=== PATIENT | male | born 1995 | race Caucasian/White ===

== ENCOUNTER 2019-10-04 17:02 | Emergency (ER) | payer OTHER ==
[2019-10-04] MEDS ORDERED: Ketorolac 60 MG/2 ML SDV IM ONE (17:18)
--- NOTE | 2019-10-04 17:21 | EDM.PDOC ---
ED HPI GENERAL MEDICAL PROBLEM - General Chief Complaint: General Stated Complaint: PT FELL Time Seen by Provider: 10/04/19 17:03 - History of Present Illness INITIAL COMMENTS - FREE TEXT/NARRATIVE: HISTORY AND PHYSICAL: History of present illness: The patient is a healthy 24-year-old male who was on a ladder approximately 5 feet when the ladder darted falling backwards and he fell onto the ground landing on his buttock. He did not his head pass out or black out and has no head neck or upper and mid back pain but complains of only pain at his tailbone and his left posterior hip. Prior to these events he was in his usual state of good health without any systemic issues. He had no nausea or vomiting no abdominal pain no chest pain or shortness of breath and no upper extremity complaints or lower extremity complaints. He has no numbness weakness or tingling in his extremities. He did not give any medications prior to coming here Review of systems: As per history of present illness and below otherwise all systems reviewed and negative. Past medical history: As per history of present illness and as reviewed below otherwise noncontributory. Surgical history: As per history of present illness and as reviewed below otherwise noncontributory. Social history: No reported history of drug or alcohol abuse. Family history: As per history of present illness and as reviewed below otherwise noncontributory. Physical exam: General: Well-developed well-nourished man who is nontoxic and moves easily in the ED without distress. Vital signs are noted by me HEENT: Atraumatic, normocephalic, pupils reactive, negative for conjunctival pallor or scleral icterus, mucous membranes moist, throat clear, neck supple, nontender, trachea midline. Lungs: Clear to auscultation, breath sounds equal bilaterally, chest nontender. Heart: S1S2, regular rate and rhythm no overt murmurs Abdomen: Soft, nondistended, nontender. NABS Pelvis: Stable nontender. There is no lateral hip tenderness but there is some discomfort with flexion at the left hip appears to be more muscular and there is no inguinal discomfort or pain or suprapubic tenderness Genitourinary: Deferred. Rectal: Deferred. Extremities: Atraumatic full range of motion of all extremities and no defects or deformities, negative for cords or calf pain. Neurovascular unremarkable. Neuro: Awake, alert, oriented. Cranial nerves II through XII unremarkable. Cerebellum unremarkable. Motor and sensory unremarkable throughout. Exam nonfocal. Back: There are no midline step-offs or defects of the thoracic or lumbar spine nor of the sacrum or coccyx but there is diffuse tenderness at the sacrum and coccyx without erythema ecchymosis or soft tissue swelling Diagnostics: X-ray of the sacrum and coccyx, left hip with pelvis x-ray Therapeutics: Toradol IM The patient has been advised of x-ray results and symptomatic care for home Impression: Fall, sacrum and coccyx contusion Definitive disposition and diagnosis as appropriate pending reevaluation and review of above. Sacrum Pain Score (Numeric/FACES): 6 - Related Data Allergies Allergy/AdvReac Type Severity Reaction Status Date / Time No Known Allergies Allergy Verified 10/04/19 17:05 Home Meds: Home Meds . [No Known Home Meds] 10/04/19 [History] Past Medical History HEENT History: Reports: None Cardiovascular History: Reports: None Respiratory History: Reports: None Gastrointestinal History: Reports: None Genitourinary History: Reports: None Musculoskeletal History: Reports: None Neurological History: Reports: None Psychiatric History: Reports: None Endocrine/Metabolic History: Reports: None Hematologic History: Reports: None Immunologic History: Reports: None Oncologic (Cancer) History: Reports: None Dermatologic History: Reports: None - Past Surgical History Head Surgeries/Procedures: Reports: None HEENT Surgical History: Reports: Tonsillectomy Cardiovascular Surgical History: Reports: None Respiratory Surgical History: Reports: None GI Surgical History: Reports: None Male Surgical History: Reports: None Endocrine Surgical History: Reports: None Neurological Surgical History: Reports: None Musculoskeletal Surgical History: Reports: None Oncologic Surgical History: Reports: None Dermatological Surgical History: Reports: None Social & Family History - Family History Family Medical History: Noncontributory - Tobacco Use Smoking Status *Q: Current Every Day Smoker Years of Tobacco use: 4 Packs/Tins Daily: 1 - Caffeine Use Caffeine Use: Reports: Coffee - Recreational Drug Use Recreational Drug Use: No ED ROS GENERAL - Review of Systems Review Of Systems: Comprehensive ROS is negative, except as noted in HPI. ED EXAM, GENERAL - Physical Exam Exam: See Below (see dictation) Course - Vital Signs Last Recorded V/S: Last Vital Signs Temp 37.0 C 10/04/19 17:05 Pulse 79 10/04/19 17:05 Resp 16 10/04/19 17:05 BP 129/75 10/04/19 17:05 Pulse Ox 96 10/04/19 17:05 - Orders/Labs/Meds Meds: Medications Discontinued Medications Generic Name Dose Route Start Last Admin Trade Name Frewarner PRN Reason Stop Dose Admin Ketorolac Tromethamine 60 mg 10/04/19 17:18 10/04/19 17:27 Toradol IM 10/04/19 17:19 60 mg ONETIME ONE Administration Departure - Departure Time of Disposition: 18:32 Disposition: Home, Self-Care 01 Condition: Good Clinical Impression: Fall from ladder Qualifiers: Encounter type: initial encounter Qualified Code(s): W11.XXXA - Fall on and from ladder, initial encounter Coccyx contusion Qualifiers: Encounter type: initial encounter Qualified Code(s): S30.0XXA - Contusion of lower back and pelvis, initial encounter - Discharge Information Forms: ED Department Discharge Additional Instructions: The following information is given to patients seen in the emergency department who are being discharged to home. This information is to outline your options for follow-up care. We provide all patients seen in our emergency department with a follow-up referral. The need for follow-up, as well as the timing and circumstances, are variable depending upon the specifics of your emergency department visit. If you don't have a primary care physician on staff, we will provide you with a referral. We always advise you to contact your personal physician following an emergency department visit to inform them of the circumstance of the visit and for follow-up with them and/or the need for any referrals to a consulting specialist. The emergency department will also refer you to a specialist when appropriate. This referral assures that you have the opportunity for followup care with a specialist. All of these measure are taken in an effort to provide you with optimal care, which includes your followup. Under all circumstances we always encourage you to contact your private physician who remains a resource for coordinating your care. When calling for followup care, please make the office aware that this follow-up is from your recent emergency room visit. If for any reason you are refused follow-up, please contact the [facility] emergency department at and ask to speak to the emergency department charge nurse. [facility] Primary care- Internal Medicine and Family [place] [id number] [place], [place] [id number] To areas of discomfort and rest as much as possible. Use [id number] Tylenol and/or ibuprofen for pain management and call and schedule a follow-up appointment with your provider or one of ours for further care of this injury. Return to ER as needed and as discussed
--- NOTE | 2019-10-04 18:10 | CR ---
INDICATION: Fall TECHNIQUE: Three-view sacrum and coccyx COMPARISON: None FINDINGS: Bones: Alignment is normal. No fractures or bone lesions. Joint spaces: Unremarkable. Soft tissues: Unremarkable. IMPRESSION: Negative. Dictated by Jefferson Arteaga MD @ 10/04/2019 6:07:33 PM Dictated by: Jefferson Arteaga MD @ 10/04/2019 18:07:44 (Electronically Signed)
--- NOTE | 2019-10-04 18:12 | CR ---
INDICATION: Fall TECHNIQUE: AP pelvis and two views left hip COMPARISON: None FINDINGS: Bones: Alignment is normal. No fractures or bone lesions. Joint spaces: Unremarkable. Soft tissues: Unremarkable. IMPRESSION: Negative. Dictated by Jefferson Arteaga MD @ 10/04/2019 6:10:57 PM Dictated by: Jefferson Arteaga MD @ 10/04/2019 18:11:04 (Electronically Signed)
== END 2019-10-04 18:50 | disposition home or self-care (01) ==
LOC: MW.ED 17:02
DX: S30.0XXA Contusion of lower back and pelvis, initial encounter (principal); F17.210 Nicotine dependence, cigarettes, uncomplicated; W11.XXXA Fall on and from ladder, initial encounter
CPT/HCPCS: 72220; 73502; 96372; 99283; J1885

== ENCOUNTER 2020-07-14 15:42 | Emergency (ER) | payer OTHER ==
--- NOTE | 2020-07-14 15:54 | EDM.PDOC ---
ED HPI GENERAL MEDICAL PROBLEM - General Chief Complaint: Lower Extremity Injury/Pain Stated Complaint: FOOT INJURY Time Seen by Provider: 07/14/20 15:43 Source of Information: Reports: Patient History Limitations: Reports: No Limitations - History of Present Illness INITIAL COMMENTS - FREE TEXT/NARRATIVE: HISTORY AND PHYSICAL: History of present illness: Patient is a 25-year-old male who presents to the emergency room with complaints of right lateral ankle pain. While at work he was doing some drills when a another participant stepped on his ankle. He is complaining of lateral ankle pain and swelling. He denies any numbness, tingling or saddle paresthesia. Denies any other extremity involvement. Offers no systemic complaints. Review of systems: As per history of present illness and below otherwise all systems reviewed and negative. Past medical history: As per history of present illness and as reviewed below otherwise noncontributory. Surgical history: As per history of present illness and as reviewed below otherwise noncontributory. Social history: See social history for further information Family history: As per history of present illness and as reviewed below otherwise noncontributory. Physical exam: General: Well developed and well nourished 25-year-old male. Alert and orientated x 3. Nontoxic in appearance and in no acute distress. Vital signs are stable and have been reviewed by me. Nursing notes were reviewed. HEENT: Atraumatic, normocephalic, pupils equal and reactive bilaterally, negative for conjunctival pallor or scleral icterus, mucous membranes moist, trachea midline. No drooling or trismus noted. No meningeal signs. No hot potato voice noted. Lungs: Clear to auscultation, breath sounds equal bilaterally. Normal work of breathing, no accessory muscles used. Heart: S1S2, regular rate and rhythm without overt murmur Abdomen: Soft, nondistended, nontender. Skin: Intact, warm, dry. No lesions or rashes noted. Hematologic: No petechiae or purpra. Mucosa appropriate color and normal nail bed color and refill. Extremities: Pain with palpation of the right lateral ankle/malleolus. He moves all extremities per self without difficulty or deficits, negative for cords or calf pain, strong pedal and pretibial pulse. Neurovascular unremarkable. Neuro: Awake, alert, oriented. Cranial nerves II through XII unremarkable. Cerebellum unremarkable. Motor and sensory unremarkable throughout. Exam nonfocal. Notes: X-ray shows a posterior process of the talus shows a lucent line. May be an acute fracture within the posterior process although partially fused accessory ossification is a possibility. Patient will be placed in a CAM walker boot and given crutches. We discussed signs and symptoms that would prompt them to return to the Emergency Department. Medication, follow up and supportive care measures were reviewed and discussed. Voices understanding and is agreeable to plan of care. Denies any further questions or concerns at this time. Diagnostics: X-ray Therapeutics: CAM walker boot and crutches, norco (2 tabs for home) Prescription: Diclofenac Impression: Ankle sprain Plan: 1. Rest, ice, elevate the affected extremity. Please wear the splint and use crutches as directed. 2. Tylenol and/or Ibuprofen as needed for pain management. 3. Follow up with the Orthopedic provider as we discussed, call Wednesday to set up a follow up appointment. Return to the ED as needed and as discussed. Definitive disposition and diagnosis as appropriate pending reevaluation and review of above. right ankle Pain Score (Numeric/FACES): 5 - Related Data Allergies Allergy/AdvReac Type Severity Reaction Status Date / Time No Known Allergies Allergy Verified 07/14/20 15:43 Home Meds: Home Meds . [No Known Home Meds] 10/04/19 [History] Past Medical History HEENT History: Reports: None Cardiovascular History: Reports: None Respiratory History: Reports: None Gastrointestinal History: Reports: None Genitourinary History: Reports: None Musculoskeletal History: Reports: None Neurological History: Reports: None Psychiatric History: Reports: None Endocrine/Metabolic History: Reports: None Hematologic History: Reports: None Immunologic History: Reports: None Oncologic (Cancer) History: Reports: None Dermatologic History: Reports: None - Infectious Disease History Infectious Disease History: Reports: None - Past Surgical History Head Surgeries/Procedures: Reports: None HEENT Surgical History: Reports: Tonsillectomy Cardiovascular Surgical History: Reports: None Respiratory Surgical History: Reports: None GI Surgical History: Reports: None Male Surgical History: Reports: None Endocrine Surgical History: Reports: None Neurological Surgical History: Reports: None Musculoskeletal Surgical History: Reports: None Oncologic Surgical History: Reports: None Dermatological Surgical History: Reports: None Social & Family History - Family History Family Medical History: Noncontributory - Tobacco Use Smoking Status *Q: Current Every Day Smoker Years of Tobacco use: 6 Packs/Tins Daily: 3 - Caffeine Use Caffeine Use: Reports: None - Recreational Drug Use Recreational Drug Use: No Review of Systems - Review of Systems Review Of Systems: Comprehensive ROS is negative, except as noted in HPI. ED EXAM, GENERAL - Physical Exam Exam: See Below (See dictation) Course - Vital Signs Last Recorded V/S: Last Vital Signs Temp 97.3 F 07/14/20 15:43 Pulse 107 H 07/14/20 15:43 Resp 17 07/14/20 15:43 BP 131/96 H 07/14/20 15:43 Pulse Ox 95 07/14/20 15:43 - Orders/Labs/Meds Orders: Active Orders 24 hr Category Date Time Status DME for Discharge [COMM] Stat Oth 07/14/20 16:29 Ordered Departure - Departure Time of Disposition: 16:41 Disposition: Home, Self-Care 01 Clinical Impression: Talus fracture Qualifiers: Encounter type: initial encounter Fracture type: closed Talus location: posterior process Fracture alignment: nondisplaced Laterality: right Qualified Code(s): S92.134A - Nondisplaced fracture of posterior process of right talus, initial encounter for closed fracture - Discharge Information Forms: ED Department Discharge Additional Instructions: The following information is given to patients seen in the emergency department who are being discharged to home. This information is to outline your options for follow-up care. We provide all patients seen in our emergency department with a follow-up referral. The need for follow-up, as well as the timing and circumstances, are variable depending upon the specifics of your emergency department visit. If you don't have a primary care physician on staff, we will provide you with a referral. We always advise you to contact your personal physician following an emergency department visit to inform them of the circumstance of the visit and for follow-up with them and/or the need for any referrals to a consulting specialist. The emergency department will also refer you to a specialist when appropriate. This referral assures that you have the opportunity for follow-up care with a specialist. All of these measure are taken in an effort to provide you with optimal care, which includes your follow-up. Under all circumstances we always encourage you to contact your private physician who remains a resource for coordinating your care. When calling for follow-up care, please make the office aware that this follow-up is from your recent emergency room visit. If for any reason you are refused follow-up, please contact the [facility] Emergency Department at and asked to speak to the emergency department charge nurse. [facility] Primary Care [address] [place] [address] [facility] [address] [place] [address] Thank you for choosing the [facility] emergency department in [place] for your medical needs today. It was a pleasure caring for you. Today you were seen in the emergency department for ankle injury/pain. 1. Rest, ice, elevate the affected extremity. Please wear the splint and use crutches as directed. 2. Tylenol and/or Ibuprofen as needed for pain management. 3. Follow up with the Orthopedic provider as we discussed, call Wednesday to set up a follow up appointment. Return to the ED as needed and as discussed. Sepsis Event Note (ED) - Evaluation Sepsis Screening Result: No Definite Risk - Focused Exam Vital Signs: Vital Signs Temp Pulse Resp BP Pulse Ox 07/14/20 15:43 97.3 F 107 H 17 131/96 H 95 - My Orders Last 24 Hours: My Active Orders 07/14/20 16:29 DME for Discharge [COMM] Stat - Assessment/Plan Last 24 Hours: My Active Orders 07/14/20 16:29 DME for Discharge [COMM] Stat
--- NOTE | 2020-07-14 16:25 | CR ---
Right ankle: 3 views right ankle were obtained. Posterior process of the talus shows a lucent line. This may represent an acute fracture within the posterior process although partially fused accessory ossification center is also a possibility. Anterior beaking is noted about the distal tibia which is normal variant but can result in impingement symptoms on dorsiflexion. No additional abnormality is appreciated. Impression: 1. Findings as described above. Diagnostic code #3 This report was dictated in MDT
[2020-07-14] MEDS ORDERED: Acetaminophen/HYDROcodone 325-5 MG Tab PO ONE (16:41)
== END 2020-07-14 16:55 | disposition home or self-care (01) ==
LOC: MW.ED 15:42
DX: S92.134A Nondisplaced fracture of posterior process of right talus, initial encounter for closed fracture (principal); S93.401A Sprain of unspecified ligament of right ankle, initial encounter; F17.210 Nicotine dependence, cigarettes, uncomplicated; W51.XXXA Accidental striking against or bumped into by another person, initial encounter; Y92.89 Other specified places as the place of occurrence of the external cause; Y99.0 Civilian activity done for income or pay
CPT/HCPCS: 29515; 73610-26-RT; 73610-RT; 99283; 99283-25

== ENCOUNTER 2021-03-17 22:34 | Emergency (ER) | payer OTHER ==
[2021-03-17] MEDS ORDERED: Aspirin 81 MG Tab.Chew PO ONE (23:06)
--- NOTE | 2021-03-17 23:06 | CR ---
Indication: Chest pain, fever Technique: Chest 1 view Comparison: None Findings/Impression: Cardiovascular and mediastinum: Heart size and vasculature are normal in caliber and appearance. Mediastinum is within normal limits. Lungs and pleural space: Lungs are clear. No sign of infiltrate or mass. No sign of pleural effusion. No pneumothorax. Bones and soft tissues: No significant findings. Dictated by Rossana Yoo MD @ 03/17/2021 11:04:[address] Rossana Yoo @ Mar 17 2021 11:04PM
[2021-03-17 23:26] LABS: BLOOD UREA NITROGEN,BUN 17 mg/dL (7.0-18.0); CARBON DIOXIDE,CO2 28.3 mmol/L (21.0-32.0); CHLORIDE,CL 104 mmol/L (98-107); GLUCOSE RANDOM 95 mg/dL (74-106); POTASSIUM,K 3.9 mmol/L (3.5-5.1); SODIUM,NA 142 mmol/L (136-148)
[2021-03-17] MEDS ORDERED: Ketorolac 15 MG/ML SDV IM ONE (23:44)
[2021-03-18] MEDS ORDERED: Ketorolac 15 MG/ML SDV IVPUSH STA (00:03)
--- NOTE | 2021-03-18 00:21 | EDM.PDOC ---
ED HPI GENERAL MEDICAL PROBLEM - General Chief Complaint: Chest Pain Stated Complaint: CHEST PAIN Time Seen by Provider: 03/17/21 22:37 - History of Present Illness INITIAL COMMENTS - FREE TEXT/NARRATIVE: CHIEF COMPLAINT(S): Chest pain HISTORY OF PRESENT ILLNESS: This is a 25-year-old man without any significant past medical history who comes to the emergency department with a chief complaint of chest pain. The patient states that for approximately 24 to 48 hours now he has been experiencing sharp chest pain located in the left upper chest just lateral to his left sternum which radiates to his back. He states that it is also sharp in his back. He states it is intermittent not associated with any position. He denies any diaphoresis, nausea or vomiting. He states that the pain is rated 4 out of 10 and now it is 3 out of 10. 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 However he has been on a quieter shift because of a ankle injury. He states that he does at times feel like he just got done running. He denies any exertional chest pain, lower extremity edema, orthopnea. He denies any shortness of breath. He denies any recent travel recent surgery or prior history of DVT or PE. He denies any numbness, tingling, or weakness. He states that he does have a family history of CAD in his father side. He states that his father at age 60 from a heart attack. He also states that his grandfather on his father side in his 40s to 50s from cardiac disease. He denies any other family history such as connective tissue diseases. He denies any family history of aneurysm. He denies any aggravating or relieving factors. The patient states that he does smoke tobacco daily. He denies any history of diabetes mellitus, hypertension, prior history of CAD or CHF. REVIEW OF SYSTEMS: Constitutional: Denies fever, chills. Eyes: Denies eye pain Ears, Nose, Mouth, & Throat: Denies earache Cardiovascular: Positive for chest pain, pleuritic chest pain Respiratory: Denies shortness of breath Gastrointestinal: Denies Nausea, vomiting, diarrhea, hematochezia. Genitourinary: Denies hematuria Skin:Denies a rash MSK: Positive for left-sided back pain. Neurological: Denies blurred vision Psychiatric: Denies depression PAST MEDICAL HISTORY: As per history of present illness and as reviewed below otherwise noncontributory. SURGICAL HISTORY: As per history of present illness and as reviewed below otherwise noncontributory. SOCIAL HISTORY: As per history of present illness and as reviewed below otherwise noncontributory. FAMILY HISTORY: As per history of present illness and as reviewed below otherwise noncontributory. EXAMINATION OF ORGAN SYSTEMS/BODY AREAS: Constitutional: Blood pressure is 144/97, heart rate 84, respiratory rate 18 with an oxygen saturation of 97% on room air. Temperature 36.3 General: Overall well-appearing young man who is in no acute distress. Psychiatric: Appropriate mood and affect. Eyes: No scleral icterus or conjunctival erythema pupils are equal round reactive to light. Extraocular movements intact. ENMT: Moist mucous membranes. No pharyngeal erythema Cardiovascular: Regular, rate, and rhythm. No gallops, murmurs, or rubs. Bilateral upper extremity pulses symmetric and intact. No peripheral edema. No JVD. Respiratory: Lungs clear to auscultation bilaterally. No wheezes, rales, or rhonchi. Gastrointestinal: Soft, non-tender, non-distended. Normoactive bowel sounds Genitourinary: No suprapubic tenderness Musculoskeletal: Normal range of motion. Skin: No lesions or abrasions. Neurological: Alert, GCS 15 strength and sensation grossly intact in upper and lower extremities. MEDICAL DECISION MAKING AND COURSE IN THE ED WITH INTERPRETATION/REVIEW OF DIAGNOSTIC STUDIES: This is a 25-year-old man without any significant past medical history who comes to the emergency department with approximately 1 to 2 days of sharp left-sided chest pain which is pleuritic in nature who is mildly hypertensive. At this time given the patient's family history will undergo a cardiac work-up. Initial EKG did not reveal any acute signs of ischemia however there were T wave inversions in the inferior and lateral leads. There are no prior EKGs in our system. In addition to ACS work-up we will obtain a D-dimer to evaluate need for further work-up for pulmonary embolism. The patient is low risk for both ACS and PE. This could be secondary to musculoskeletal strain. Heart Score History: Slightly or Non-Suspicious (0) ECG: Non-specific repolarization (1) Age: <45 (0) Risk Factors: 1-2 (2) Initial Troponin: </= normal limit (0) Total Score: 2low risk PERC Rule Age (>/=50): No (0) HR (>/=100): No (0) SaO2 on RA <95%: No (0) Unilateral Leg Swelling: No (0) Hemoptysis: No (0) Surgery/Trauma in last month requiring general anesthesia: No (0) Prior PE or DVT: : No (0) Hormone Use: No (0) PERC negative Wells Criteria Clinical signs/symptoms of DVT: No (0) PE #1 Dx or equally likely: No (0) Heart Rate >100: No (0) Immobilization for 3 days or surgery in last month: No (0) Previously Dx PE or DVT: No (0) Hemoptysis: No (0) Malignancy w/ Tx within 6 months or palliative: No (0) Wells Score: 0 Time: 2235 Twelve-lead EKG interpreted by myself. Normal sinus rhythm at a rate of 90 beats per minute. Normal axis. NJ interval is 144 ms. QRS duration is [address] segments are normal without elevations or depressions. T wave inversions in leads II, 3, aVF, V4 through V6 no Q waves present. Hypertrophy not noted. No prior EKGs in our system. Interpretation: Sinus rhythm with inferior lateral T wave inversions Laboratory: CBC is unremarkable. D-dimer is 0.32. BMP is unremarkable.Magnesium is 2.1. Troponin is negative. The radiological images were viewed by myself along with reading the report from the radiologist. Chest x-ray does not reveal any acute cardiopulmonary process. No mediastinal widening. On reevaluation the patient stated that his pain was similar. Given the negative work-up I did provide the patient with Toradol and we will reevaluate his pain. Was at this time he stated that he did have a smoker's cough and it seems to have been exacerbated after he coughed. At this time I did discuss musculoskeletal strain, costochondritis. I discussed treatment options at home. However we will reevaluate for pain improvement. Time: 2340 Twelve-lead EKG interpreted by myself. Normal sinus rhythm at a rate of 85 beats per minute. Normal axis. NJ interval is 142 ms. QRS duration is [address] segments are normal without elevations or depressions. T wave inversions in leads III, 2, aVF, V4 through V6 no Q waves present. Hypertrophy not noted. No change from EKG dated today. Interpretation: Sinus rhythm with inferior lateral T wave inversions On reevaluation the patient did report pain improvement. I did discuss with him I had like him to follow-up with his primary care physician this week. He is to return for any new or worsening symptoms. He was amenable to discharge at this time and had no further questions DISPOSITION: The patient was discharged home in stable condition. The patient will follow up with primary care physician in 3 to 5 days CONDITION: Fair PROCEDURES: None FINAL IMPRESSION(S)/DIAGNOSES: 1. Acute chest pain Dwight Braun M.D. chest pain Pain Score (Numeric/FACES): 3 - Related Data Allergies Allergy/AdvReac Type Severity Reaction Status Date / Time No Known Allergies Allergy Verified 03/17/21 22:44 Home Meds: Home Meds . 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 Hematologic History: Reports: None Immunologic History: Reports: None Oncologic (Cancer) History: Reports: None Dermatologic History: Reports: None - Infectious Disease History Infectious Disease History: Reports: None - Past Surgical History Head Surgeries/Procedures: Reports: None HEENT Surgical History: Reports: Tonsillectomy Cardiovascular Surgical History: Reports: None Respiratory Surgical History: Reports: None GI Surgical History: Reports: None Male Surgical History: Reports: None Endocrine Surgical History: Reports: None Neurological Surgical History: Reports: None Musculoskeletal Surgical History: Reports: None Oncologic Surgical History: Reports: None Dermatological Surgical History: Reports: None Social & Family History - Family History Family Medical History: No Pertinent Family History - Caffeine Use Caffeine Use: Reports: Coffee, Energy Drinks, Soda, Tea - Recreational Drug Use Recreational Drug Use: No ED ROS GENERAL - Review of Systems Review Of Systems: See Below ED EXAM, GENERAL - Physical Exam Exam: See Below Course - Vital Signs Last Recorded V/S: Last Vital Signs Temp 36.3 C 03/17/21 22:35 Pulse 91 03/18/21 00:27 Resp 16 03/18/21 00:27 BP 140/90 03/18/21 00:27 Pulse Ox 95 03/18/21 00:27 - Orders/Labs/Meds Labs: Laboratory Tests 03/17/21 03/17/21 03/17/21 Range/Units 22:45 22:45 22:45 WBC 4.84 (4.0-11.0) K/uL RBC 5.34 (4.50-5.90) M/uL Hgb 17.7 H (13.0-17.0) g/dL Hct 49.0 (38.0-50.0) % MCV 91.8 (80.0-98.0) fL MCH 33.1 H (27.0-32.0) pg MCHC 36.1 (31.0-37.0) g/dL RDW Std Deviation 41.9 (28.0-62.0) fl RDW Coeff of Shane 13 (11.0-15.0) % Plt Count 242 (150-400) K/uL MPV 9.80 (7.40-12.00) fL Neut % (Auto) 50.3 (48.0-80.0) % Lymph % (Auto) 37.6 (16.0-40.0) % Bell % (Auto) 10.5 (0.0-15.0) % Eos % (Auto) 1.4 (0.0-7.0) % Baso % (Auto) 0.2 (0.0-1.5) % Neut # (Auto) 2.4 (1.4-5.7) K/uL Lymph # (Auto) 1.8 (0.6-2.4) K/uL Bell # (Auto) 0.5 (0.0-0.8) K/uL Eos # (Auto) 0.1 (0.0-0.7) K/uL Baso # (Auto) 0.0 (0.0-0.1) K/uL Nucleated RBC % 0.0 /100WBC Nucleated RBCs # 0 K/uL D-Dimer, Quantitative 0.32 (0.0-0.50) mg/L FEU Sodium 142 (136-148) mmol/L Potassium 3.9 (3.5-5.1) mmol/L Chloride 104 (98-107) mmol/L Carbon Dioxide 28.3 (21.0-32.0) mmol/L BUN 17 (7.0-18.0) mg/dL Creatinine 1.2 (0.8-1.3) mg/dL Est Cr Clr Drug Dosing 94.92 mL/min Estimated GFR (MDRD) > 60.0 ml/min Glucose 95 (74-106) mg/dL Calcium 9.7 (8.5-10.1) mg/dL Magnesium 2.1 (1.8-2.4) mg/dL Troponin I < 0.050 (0.000-0.056) ng/mL Meds: Medications Discontinued Medications Generic Name Dose Route Start Last Admin Trade Name Nathaly PRN Reason Stop Dose Admin Aspirin 324 mg 03/17/21 23:06 03/17/21 23:17 Aspirin 81 Mg Tab.Chew PO 03/17/21 23:07 324 mg ONETIME ONE Administration Ketorolac Tromethamine 15 mg 03/17/21 23:44 03/18/21 00:05 Ketorolac 15 Mg/Ml Sdv IM 03/17/21 23:45 Not Given ONETIME ONE Ketorolac Tromethamine 15 mg 03/18/21 00:03 03/18/21 00:07 Ketorolac 15 Mg/Ml Sdv IVPUSH 03/18/21 00:04 15 mg NOW STA Administration Departure - Departure Time of Disposition: 00:21 Disposition: Home, Self-Care 01 Condition: Fair Clinical Impression: Atypical chest pain, Costochondritis - Discharge Information Instructions: Costochondritis, [id number], Nonspecific Chest Pain, Adult, [id number] Forms: ED Department Discharge Additional Instructions: You were evaluated today on an emergent basis. Your work-up was negative and your chest x-ray was normal. Your EKG or rhythm strip of your heart did reveal feels some abnormalities however this can be normal. There was no evidence of heart attack on your EKG. At this time I do recommend that she use Tylenol and Motrin for pain relief and to follow-up with your primary care physician within 1 to 3 days. If you have any new or worsening symptoms such as passing out, swelling of your legs, worsening chest pain please return to the emergency department. Please use: Tylenol 500-1000mg every 6 hours (DO NOT TAKE MORE THAN 4000mg in 1 day) Ibuprofen 400mg every 6 hours (Take with food as it can cause ulcers, GI upset) Example schedule: 8:00 AM (Tylenol 500-1000mg) 11:00 AM (Ibuprofen 400mg) 2:00 PM (Tylenol 500-1000mg) 5:00 PM (Ibuprofen 400mg) In addition to Tylenol and Motrin you may use over the counter creams such as Voltaren Cream or Lidocaine Cream (Lidoderm) as needed 4 times a day for symptomatic relief. Ice the area 20 minutes 4 times per day [facility] [address] [place], [place] [id number] [place] [address] The patient is informed of any results of their evaluation and diagnostic workup and all questions are answered. They are given discharge instructions and return precautions. The patient is stable for discharge. The patient states they understand and agree with the plan and that they will return if their symptoms get worse or if they have any new concerns. The following information is given to patients seen in the emergency department who are being discharged to home. This information is to outline your options for follow-up care. We provide all patients seen in our emergency department with a follow-up referral. The need for follow-up, as well as the timing and circumstances, are variable depending upon the specifics of your emergency department visit. If you don't have a primary care physician on staff, we will provide you with a referral. We always advise you to contact your personal physician following an emergency department visit to inform them of the circumstance of the visit and for follow-up with them and/or the need for any referrals to a consulting specialist. The emergency department will also refer you to a specialist when appropriate. This referral assures that you have the opportunity for follow-up care with a specialist. All of these measure are taken in an effort to provide you with optimal care, which includes your follow-up. Under all circumstances we always encourage you to contact your private physician who remains a resource for coordinating your care. When calling for follow-up care, please make the office aware that this follow-up is from your recent emergency room visit. If for any reason you are refused follow-up, please contact the [facility] Emergency Department at and asked to speak to the emergency department charge nurse. Sepsis Event Note (ED) - Evaluation Sepsis Screening Result: No Definite Risk - Focused Exam Vital Signs: Vital Signs Temp Pulse Resp BP Pulse Ox 03/18/21 00:27 91 16 140/90 95 03/17/21 22:35 36.3 C 84 18 144/97 H 97
== END 2021-03-18 00:27 | disposition home or self-care (01) ==
LOC: MW.ED 22:34
DX: M94.0 Chondrocostal junction syndrome [Tietze] (principal)
CPT/HCPCS: 36415; 71045; 80048; 83735; 84484; 85025; 85379; 93005; 96374; 99285; A9270; J1885; 93010; 99284

== ENCOUNTER 2022-06-20 22:55 | Emergency (ER) | payer OTHER ==
[2022-06-20] MEDS ORDERED: Pantoprazole 40 MG in Sodium Chloride 0.9% 10 ML IVPUSH ONE (23:36)
[2022-06-21 00:27] LABS: BLOOD UREA NITROGEN,BUN 17 mg/dL (7.0-18.0); CARBON DIOXIDE,CO2 22.1 mmol/L (21.0-32.0); CHLORIDE,CL 105 mmol/L (98-107); GLUCOSE RANDOM 95 mg/dL (74-106); POTASSIUM,K 3.8 mmol/L (3.5-5.1); SODIUM,NA 141 mmol/L (136-148)
[2022-06-21] MEDS ORDERED: Alum Hydro/Mag Hydro/Simeth XS 15 ML, Lidocaine 2% 5 ML PO ONE ×2 (00:40)
[2022-06-21 00:48] LABS: ESTIMATED GFR 86 mL/min (>60)
== END 2022-06-21 01:34 | disposition home or self-care (01) ==
LOC: MW.ED 22:55
DX: K21.9 Gastro-esophageal reflux disease without esophagitis (principal); F17.210 Nicotine dependence, cigarettes, uncomplicated; Z79.899 Other long term (current) drug therapy
CPT/HCPCS: 36415; 71045; 80053; 84484; 85025; 93005; 96374; 99284; A9270; C9113; J3490; 93010; 99283

== ENCOUNTER 2025-08-14 15:56 | Emergency (ER) | payer BC, OTHER ==
[2025-08-14 16:38] LABS: BASOPHILS ABSOLUTE AUTO 0.03 K/uL (0.00-0.20); BASOPHILS PERCENT AUTO 0.5 % (0.0-1.0); EOSINOPHILS ABSOLUTE AUTO 0.08 K/uL (0.00-0.45); EOSINOPHILS PERCENT AUTO 1.5 % (0.0-6.0); IMMATURE GRAN ABSOLUTE AUTO 0.03 K/uL (0.00-0.05); IMMATURE GRAN PERCENT AUTO 0.5 % (0.0-0.4); LYMPHOCYTES ABSOLUTE AUTO 1.84 K/uL (1.00-4.80); LYMPHOCYTES PERCENT AUTO 33.5 % (24.0-44.0); MEAN PLATELET VOLUME 9.2 fL (9.4-12.4); MONOCYTES ABSOLUTE AUTO 0.32 K/uL (0.00-0.80); MONOCYTES PERCENT AUTO 5.8 % (0.0-8.0); NEUTROPHILS ABSOLUTE AUTO 3.20 K/uL (1.80-7.70); NEUTROPHILS PERCENT AUTO 58.2 % (41.0-71.0); NRBC ABSOLUTE 0.00 K/uL (0.00-0.02); NRBC PERCENT 0.0 /100WBC (0.0-0.2); PLATELET COUNT,PLT 263 K/uL (150-400); RED BLOOD CELL COUNT 5.21 M/uL (4.52-5.90); WHITE BLOOD CELL COUNT,WBC 5.50 K/uL (3.9-11.3)
[2025-08-14 17:06] LABS: A/G RATIO 1.2 (0.9-1.6); ALANINE AMINOTRANSFERASE,ALT 81.0 IU/L (14-63); ASPARTATE AMNIOTRANSFERASE,AST 51.0 IU/L (15-37); BILIRUBIN TOTAL 0.4 mg/dL (0.2-1.0); BLOOD UREA NITROGEN,BUN 25.0 mg/dL (7.0-18.0); CARBON DIOXIDE,CO2 22.4 mmol/L (21.0-32.0); CHLORIDE,CL 105.0 mmol/L (98-107); CREATININE 0.9 mg/dL (0.8-1.3); EST CRCL DRUG DOSING (CG) 121.11 mL/min; GLUCOSE RANDOM 88.0 mg/dL (74-106); POTASSIUM,K 3.7 mmol/L (3.5-5.1); PROTEIN TOTAL,TP 7.8 g/dL (6.4-8.2); SODIUM,NA 140.0 mmol/L (136-148)
[2025-08-14 17:10] LABS: ESTIMATED GFR 119.0 mL/min (>60)
== END 2025-08-14 18:25 | disposition home or self-care (01) ==
LOC: MW.ED 15:56
DX: S76.912A Strain of unspecified muscles, fascia and tendons at thigh level, left thigh, initial encounter (principal); R07.9 Chest pain, unspecified; Z75.3 Unavailability and inaccessibility of health-care facilities; Z91.048 Other nonmedicinal substance allergy status; Z79.899 Other long term (current) drug therapy; X50.0XXA Overexertion from strenuous movement or load, initial encounter
CPT/HCPCS: 36415; 71045; 80053; 83735; 84484; 85025; 85379; 93005; 93971; 96360; 99284; J7030; 93010; 99283